=== PATIENT | male | born 1940 | race African-American/Black ===

== ENCOUNTER → 2017-04-06 | Outpatient (CLI) | payer MEDICARE, OTHER ==
[2015-07-29 11:55] VITALS: BP 171/87
[~2017-04-06] MED LIST: ALFU10TA PO; ASPI-630 PO; BUPIVACAINE MPF 0.5% 10 ML VIAL for KCIC. IJ ONE; COLC0.6T34 PO; CONTRAST GIVEN MC PRN; CRESTOR20 MG PO; FEBU40TA PO; IOHEXOL 300 MG/ML 50 ML VIAL. INT ART ONE; LEVO112T4 PO; LIDOCAINE 1% Multi-Dose 20 ML VIAL. ID ONE; LISI40TA PO; METO100T5 PO; OMEG1CAP43 PO; POTA20TA12 PO; TRIA1TAB PO; methylPREDNISolone ACETATE 40 MG/ML VIAL. INT ART ONE
--- NOTE | 2017-04-06 14:26 | KCIC ---
PROCEDURE Therapeutic left hip injection using fluoroscopic guidance. HISTORY Hip pain. Chronic left hip pain. TECHNIQUE The procedure was explained to the patient as were potential risks, including infection, bleeding or allergic reaction. All questions were answered. Informed written and verbal consent was obtained. The hip was prepped and draped in the usual sterile manner. Following administration of local anesthetic, a 22-gauge spinal needle was advanced into the hip joint without difficulty, with care taken to avoid the vascular structures. Stylet was removed and following negative aspiration, a mixture of 4 cc Omnipaque-300, 2 cc (80 mg) Depo-Medrol, 4 cc 0.5% Marcaine and 4 cc 1% lidocaine were injected without difficulty. The needle was removed. There was good hemostasis at the injection site. The patient left in stable condition without immediate complication. The patient was given postprocedural instructions, instructed to contact us or the emergency room if there are any complications. A single spot image was obtained. FLUOROSCOPY TIME: 1 minute 37 seconds Electronically signed by: Sohail Jung MD (04/06/2017 2:23 PM)
== END | disposition home or self-care (01) ==
LOC: KCIC 10:15
PROVIDERS: ATTEND Internal Medicine Rheumatology
DX: M25.552 Pain in left hip (principal); M89.29 Other disorders of bone development and growth, multiple sites
CPT/HCPCS: 20610; 77002; J1030; Q9967